=== PATIENT | female | born 1995 | race Caucasian/White ===

== ENCOUNTER → 2024-11-24 | Emergency (ER) | payer BC ==
[~2024-11-24] VITALS: Ht 162.6 cm; Wt 74.8 kg
[~2024-11-24] MED LIST: LEVSIN/SL0.125 MG SL; ONDANSETRON ODT4 MG PO; PEPCID40 MG PO
== END | disposition home or self-care (01) ==
LOC: ER 23:12
DX: R10.9 Unspecified abdominal pain (principal); Z87.19 Personal history of other diseases of the digestive system